=== PATIENT | female | born 1975 | race Caucasian/White ===

== ENCOUNTER → 2016-05-05 | Outpatient (CLI) | payer BC ==
[~2016-05-05] VITALS: Ht 160 cm; Wt 88.3 kg
[~2016-05-05] MED LIST: LYRICA100 MG PO; TOPAMAX50 MG PO; TRAZODONE 150150 M1 PO; ZANAFLEX4 MG PO
--- NOTE | ~2016-05-05 | HPC ---
[facility] [place] [address] PAIN MANAGEMENT CONSULTATION Name: CARI PADILLA Room #: REG [facility].#: [id number] Admission: 05/05/16 Attend Phys: Prateek Vale DO Discharge: Date of : 75 Report #: [id number] THIS REPORT FOR: //name// CC: Prateek Perkins DATE OF SERVICE: 05/05/2016 CHIEF COMPLAINT: Neck pain, upper extremity pain with paresthesias. HISTORY OF PRESENT ILLNESS: As you know, the patient is a 41-year-old female with recurrent neck pain, upper back pain, bilateral upper extremity pain with paresthesias. The patient had done very well with previous cervical epidural injection and in fact has been lost to follow up visit since 10/11/2014, where she underwent a cervical epidural injection. She returns today in followup visit stating that her symptoms have returned, pain she indicates today is a level of 7/10, states the pain is chronic, describes the pain as burning, activities exacerbate symptoms, rest appears to improve pain. She reports that previous epidural injection provided a year and a half ago provided near 100% improvement in overall pain. She returns today requesting the next in a series of cervical epidural injections. She denies any changes in medical history since our last visit. ALLERGIES: None. CURRENT MEDICATIONS: Trazodone 150 mg p.o. at bedtime, pregabalin 100 mg twice a day, tramadol 50 mg once a day, and tizanidine 4 mg p.r.n. SOCIAL HISTORY: The patient denies tobacco, alcohol or IV or illicit drug use. She is employed, she is working, not receiving workmen's compensation. She is unaccompanied today. IMAGING: No new imaging available. PHYSICAL EXAMINATION: VITAL SIGNS: Blood pressure 113/76, pulse 57, respiratory rate 14 and unlabored, the patient is 98% on room air, height 5 feet 3 inches tall, weight 194.6 pounds, and BMI calculated 34.5. GENERAL: Well-developed, well-nourished, well-hydrated, exogenously obese 41-year-old female, appearing stated age, pain is rated at around 7/10. HEENT: Normocephalic, atraumatic. Pupils are equal, round, and reactive to light. Extraocular muscles are intact. Sclerae nonicteric without injection. EXTREMITIES: Show no clubbing, no cyanosis, and no edema. MUSCULOSKELETAL: Upper extremity strength equal and symmetrical 5/5, intact to light touch from C5-T1 dermatomes. Muscle bulk and tone equal and symmetrical in upper extremities. Spurling's test positive. [address] [address] PAIN MANAGEMENT CONSULTATION Name: CARI PADILLA Room #: REG [facility]#: [id number] Admission: 05/05/16 Attend Phys: Prateek Vale DO Discharge: Date of : 75 Report #: [id number] ASSESSMENT: 1. Cervical radiculopathy. 2. 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 3. Cervical spondylosis with radiculopathy. 4. Chronic intractable pain. PLAN: 1. The patient returns today in followup visit requesting to undergo the next in a series of cervical epidural injections. We have discussed with the patient the findings and physical exam, we agreed that she has done very well with the previous injections and would likely see improvement with a repeat procedure. We have advised the patient of the risks and the benefits of this procedure. These risks include, but are not necessarily limited to bleeding, bruising, infection, worsening of pain, no relief of pain, also risk of temporary or permanent muscle weakness, temporary or permanent nerve damage, possible paralysis and . The patient states understood and wished to proceed. 2. No medication changes were made at today's visit, the patient to continue current medical therapy as previously prescribed. 3. The patient to return to our clinic on an as needed basis for further evaluation and discussion of treatment options. PROCEDURE NOTE DESCRIPTION OF PROCEDURE: C7-T1 cervical epidural steroid injection under fluoroscopic guidance. This is the first procedure of the second series that the patient is undergoing. After obtaining written consent, the patient was taken back to the fluoroscopy suite and placed in a prone position with separate pillows under chest and forehead to decrease cervical lordosis. The skin overlying the cervical area was prepped and draped in an aseptic fashion. The C7-T1 vertebral interspace was identified by AP fluoroscopy. The skin and subcutaneous tissue overlying the target site of injection was anesthetized using 3 ml of 1% lidocaine. A 20-gauge 3-1/2-inch Tuohy needle was advanced under fluoroscopic guidance toward the epidural space using a midline approach. The epidural space was identified using a loss of resistance to air technique. After negative aspiration for heme or cerebrospinal fluid, a total of 1 mL of Omnipaque was injected. A cervical epidurogram was confirmed using AP and oblique fluoroscopy. After negative aspiration for heme or cerebrospinal fluid, 5 mL of a solution containing 2 mL 40 mg per mL, 80 mg total triamcinolone, 3 mL of lidocaine 1% was injected in increments. Contrast spread was noted from posterior epidural space. The needle was then retracted approximately [facility] and the needle track was flushed with 1 ml of 1% lidocaine. There were no [facility] [address] [place] [address] PAIN MANAGEMENT CONSULTATION Name: CARI PADILLANNE Room #: REG [facility]#: [id number] Admission: 05/05/16 Attend Phys: Prateek Vale DO Discharge: Date of : 75 Report #: [id number] apparent new sensory deficits in the upper extremities present following the procedure. A sterile bandage was placed over the injection site. The heart rate, pulse oximetry, and blood pressure were continuously monitored after the procedure. There were no apparent complications. The patient tolerated the procedure well and was carefully escorted in the recovery room in stable condition. After meeting discharge criteria, the patient was discharged home. <ELECTRONICALLY SIGNED> By: Prateek Vale DO 05/18/16 [id number] Prateek Vale DO /nt
[2016-05-05 10:24] VITALS: BP 113/76
== END | disposition home or self-care (01) ==
LOC: PAIN 07:03
DX: M50.13 Cervical disc disorder with radiculopathy, cervicothoracic region (principal); M47.22 Other spondylosis with radiculopathy, cervical region; G89.29 Other chronic pain